=== PATIENT | male | born 1945 | race Caucasian/White ===

== ENCOUNTER 2022-04-13 13:31 | Outpatient (CLI) | payer OTHER | END 2022-04-13 13:32 | disposition home or self-care (01) | LOC: BICCT 13:31 | PROVIDERS: ATTEND Internal Medicine | DX: Z12.2 Encounter for screening for malignant neoplasm of respiratory organs (principal); Z87.891 Personal history of nicotine dependence | CPT/HCPCS: 71271 ==

== ENCOUNTER 2022-07-31 08:33 | Outpatient (CLI) | payer OTHER | END 2022-07-31 08:34 | disposition home or self-care (01) | LOC: BICRAD 08:33 | PROVIDERS: ATTEND Internal Medicine | DX: M25.361 Other instability, right knee (principal); M17.11 Unilateral primary osteoarthritis, right knee ==

== ENCOUNTER 2022-11-27 13:18 | Outpatient (CLI) | payer OTHER | END 2022-11-27 13:19 | disposition home or self-care (01) | LOC: RAD 13:18 | PROVIDERS: ATTEND Internal Medicine | DX: M25.571 Pain in right ankle and joints of right foot (principal); M79.671 Pain in right foot; M79.89 Other specified soft tissue disorders; S82.831A Other fracture of upper and lower end of right fibula, initial encounter for closed fracture; S82.431A Displaced oblique fracture of shaft of right fibula, initial encounter for closed fracture ==

== ENCOUNTER 2022-11-27 15:27 | Emergency (ER) | payer OTHER ==
[2022-11-27] MEDS ORDERED: HYDROcodone/Acetaminophen 5/325 mg Tablet ONE (19:02)
== END 2022-11-27 19:07 | disposition home or self-care (01) ==
LOC: ERS 15:27
DX: S82.401A Unspecified fracture of shaft of right fibula, initial encounter for closed fracture (principal); S82.851A Displaced trimalleolar fracture of right lower leg, initial encounter for closed fracture; Z87.891 Personal history of nicotine dependence; W07.XXXA Fall from chair, initial encounter
CPT/HCPCS: 36415; 80048; 83036; 85025; 85379

== ENCOUNTER 2022-12-05 10:09 | Day surgery (SDC) | payer OTHER, MEDICAID ==
[2022-12-04 13:11] VITALS: BMI 35.9
[2022-12-05] MEDS ORDERED: fentaNYL 50 mcg/mL 1 mL Vial ONE (11:03)
[2022-12-05] MEDS ORDERED: Ropivacaine 0.5% HCl/PF (150 MG/30 ML VIAL) ONE (11:03)
[2022-12-05] MEDS ORDERED: Midazolam HCl 2 mg/2 ml Vial ONE (11:03)
[2022-12-05] MEDS ORDERED: CEFAZOLIN 2 GM VIAL ONE ×2 (12:04→12:26)
[2022-12-05] MEDS ORDERED: Sodium Chloride 0.9% 100 ML ONE ×2 (12:04→12:26)
[2022-12-05] MEDS ORDERED: PROPOFOL 200 MG/20 ML VIAL ONE (12:46)
[2022-12-05] MEDS ORDERED: Ondansetron PF 4 MG/2 ML Vial ONE (12:46)
== END 2022-12-05 15:35 | disposition home or self-care (01) ==
LOC: SDC 10:09
PROVIDERS: ATTEND Orthopaedic Surgery
PROC: 0QSJ04Z Reposition Right Fibula with Internal Fixation Device, Open Approach (ICD-10-PCS; principal; 2022-12-05)
PROC: 0QSG04Z Reposition Right Tibia with Internal Fixation Device, Open Approach (ICD-10-PCS; 2022-12-05)
DX: S82.841A Displaced bimalleolar fracture of right lower leg, initial encounter for closed fracture (principal); Z87.891 Personal history of nicotine dependence; Z79.899 Other long term (current) drug therapy; W01.190A Fall on same level from slipping, tripping and stumbling with subsequent striking against furniture, initial encounter
CPT/HCPCS: 27814; 73600; J3010; C1713; C1776; C1874; J2250; J2405; J2704; J2795; J3490